=== PATIENT | male | born 1985 | race Two or more races ===

== ENCOUNTER 2017-08-09 20:43 | Emergency (ER) | payer MEDICAID ==
[~2017-08-09] VITALS: Ht 172.7 cm; Wt 64.0 kg
[2017-08-09] MEDS ORDERED: SODIUM CHLORIDE 0.9% 1,000 ML IV ONE (22:47)
[2017-08-09 23:11] LABS: BASOPHILS % 0.7 % (0.0-2.0); EOSINOPHILS % 0.6 % (0.0-5.0); HEMATOCRIT. 42.2 % (42.0-52.0); HEMOGLOBIN. 14.7 g/dL (14.0-18.0); LYMPHOCYTES % 23.7 % (20.0-50.0); MEAN CORPUSCULAR HEMOGLOBIN 32.9 pg (28.0-32.0); MEAN CORPUSCULAR VOLUME 94.4 fL (80.0-94.0); MEAN PLATELET VOLUME 10.3 fl (7.4-10.4); MONOCYTES % 6.3 % (2.0-8.0); NEUTROPHILS % 68.7 % (40.0-76.0); PLATELET 247 x1000/uL (130-400); RED BLOOD CELL COUNT 4.47 mill/uL (4.7-6.1); RED CELL DISTRIBUTION WIDTH 12.8 % (11.6-14.6)
[2017-08-09 23:16] LABS: INR 1.1
[2017-08-09] MEDS ORDERED: KETOROLAC 30MG/ML VIAL IV STA (23:17)
[2017-08-10] MEDS ORDERED: HYDROCODONE/ACETAMINOPHEN 10/325MG TABLET PO ONE (00:30)
[2017-08-10 00:53] VITALS: BP 122/70
== END 2017-08-10 00:54 | disposition home or self-care (01) ==
LOC: ER 20:43
DX: M25.811 Other specified joint disorders, right shoulder (principal); S06.9X9A Unspecified intracranial injury with loss of consciousness of unspecified duration, initial encounter; M25.511 Pain in right shoulder; W10.9XXA Fall (on) (from) unspecified stairs and steps, initial encounter; Y93.89 Activity, other specified; R42 Dizziness and giddiness; Y92.89 Other specified places as the place of occurrence of the external cause; C76.41 Malignant neoplasm of right upper limb; C78.00 Secondary malignant neoplasm of unspecified lung; M79.5 Residual foreign body in soft tissue; Z92.21 Personal history of antineoplastic chemotherapy; F17.210 Nicotine dependence, cigarettes, uncomplicated; F12.10 Cannabis abuse, uncomplicated
CPT/HCPCS: 36415; 70450; 73030; 80329; 85025; 85610; 93005; 96361; 96374; 99285; J1885; J7030